=== PATIENT | female | born 1965 | race Caucasian/White ===

== ENCOUNTER 2020-05-29 16:14 | Emergency (ER) | payer OTHER ==
[~2020-05-29] VITALS: Ht 167.6 cm; Wt 52.2 kg
[~2020-05-29 16:14] MED LIST: CELEXA20 MG PO; MEDROL DOSEPAK4 MG PO; MOTRIN600 MG PO; TESSALON PERLE100 MG PO; VICODIN 5/500 505 MG PO; ZYRTEC10 MG PO
[2020-05-29 17:23] LABS: BASO # 0.1 10*3/uL (0.0-0.1); BASO % 0.7 % (0.0-1.0); EOS # 0.6 10*3/uL (0.0-0.4); EOS % 5.1 % (1.0-4.0); HEMATOCRIT 43.6 % (37.0-47.0); LYMPH # 2.3 10*3/uL (1.3-4.4); MEAN CELL VOLUME 95.4 fl (81.0-99.0); MEAN CORPUSCULAR HGB 30.4 pg (27.0-31.0); MEAN CORPUSCULAR HGB CONC 31.9 g/dl (33.0-37.0); MEAN PLATELET VOLUME 10.1 fl (9.6-12.3); MONO # 0.7 10*3/uL (0.1-1.0); MONO % 5.3 % (3.0-9.0); NEUT # 8.8 10*3/uL (2.3-7.9); NEUT % 70.5 % (47.0-73.0); PLATELET COUNT AUTOMATED 296 10*3/uL (130-400); RED BLOOD COUNT 4.57 10*6/uL (4.10-5.10); RED CELL DISTRI WIDTH 12.4 % (0-14.5); WHITE BLOOD COUNT 12.5 10*3/uL (4.8-10.8)
[2020-05-29 17:40] LABS: ALBUMIN 3.7 gm/dl (3.1-4.5); ALKALINE PHOSPHATASE 74 U/L (45-117); BUN 20 mg/dl (7-24); CHLORIDE 108 mmol/L (98-107); CREATININE 1.43 mg/dL (0.55-1.02); LIPASE 162 U/L (73-393); POTASSIUM 3.4 mmol/L (3.5-5.1); SGOT/AST 21 IU/L (3-35); SGPT/ALT 25 U/L (12-78); SODIUM 137 mmol/L (136-145); TOTAL PROTEIN 8.3 gm/dL (6.4-8.2)
[2020-05-29 17:41] LABS: TROPONIN I < 0.015 ng/ml (<0.045)
[2020-05-29 18:25] LABS: ACT PARTIAL THROMBO TIME 28.2 SECONDS (20.0-32.1)
== END 2020-05-29 20:01 | disposition home or self-care (01) ==
LOC: ED 16:14
PROVIDERS: Emergency Medicine
DX: E86.0 Dehydration (principal); Z79.899 Other long term (current) drug therapy

== ENCOUNTER 2021-05-25 13:33 | Emergency (ER) | payer OTHER ==
[~2021-05-25] VITALS: Ht 160 cm; Wt 52.2 kg
[2021-05-25] MEDS ORDERED: METHOCARBAMOL500 M1 PO (16:48)
[2021-05-25] MEDS ORDERED: PREDNISONE20 M1 PO (16:48)
== END 2021-05-25 16:55 | disposition home or self-care (01) ==
LOC: ED 13:33
DX: S33.5XXA Sprain of ligaments of lumbar spine, initial encounter (principal); S13.9XXA Sprain of joints and ligaments of unspecified parts of neck, initial encounter; Z79.899 Other long term (current) drug therapy; Z98.51 Tubal ligation status; X50.0XXA Overexertion from strenuous movement or load, initial encounter; Y93.89 Activity, other specified; Y92.89 Other specified places as the place of occurrence of the external cause; Y99.8 Other external cause status

== ENCOUNTER → 2021-10-24 | Outpatient (CLI) | payer OTHER ==
[~2021-10-24] MED LIST changes: +METHOCARBAMOL500 M1 PO; +PREDNISONE20 M1 PO
== END | disposition home or self-care (01) ==
LOC: COVID19 15:17
PROVIDERS: ATTEND Internal Medicine
DX: Z20.822 Contact with and (suspected) exposure to COVID-19 (principal)

== ENCOUNTER 2021-11-09 20:07 | Emergency (ER) | payer OTHER ==
[~2021-11-09] VITALS: Wt 56.7 kg
[2021-11-09] MEDS ORDERED: METOPROLOL SUCC25 M2 PO (20:12)
[2021-11-09] MEDS ORDERED: MEDROXYPROGEST2.5 MG PO (20:13)
[2021-11-09] MEDS ORDERED: LEVOTHYROXINE50 MCG PO (20:13)
[2021-11-09] MEDS ORDERED: Synthroid,Levo25 MCG PO (20:13)
[2021-11-09 20:38] LABS: BASO # 0.1 10*3/uL (0.0-0.1); BASO % 0.5 % (0.0-1.0); EOS # 0.4 10*3/uL (0.0-0.4); EOS % 4.3 % (1.0-4.0); HEMATOCRIT 41.2 % (37.0-47.0); LYMPH # 2.6 10*3/uL (1.3-4.4); LYMPH % 26.5 % (27.0-41.0); MEAN CELL VOLUME 90.7 fl (81.0-99.0); MEAN CORPUSCULAR HGB 31.5 pg (27.0-31.0); MEAN CORPUSCULAR HGB CONC 34.7 g/dl (33.0-37.0); MEAN PLATELET VOLUME 8.8 fl (9.6-12.3); MONO # 0.6 10*3/uL (0.1-1.0); NEUT # 6.1 10*3/uL (2.3-7.9); NEUT % 62.4 % (47.0-73.0); PLATELET COUNT AUTOMATED 335 10*3/uL (130-400); RED BLOOD COUNT 4.54 10*6/uL (4.10-5.10); WHITE BLOOD COUNT 9.8 10*3/uL (4.8-10.8)
[2021-11-09 20:52] LABS: ALBUMIN 3.4 gm/dl (3.1-4.5); ALKALINE PHOSPHATASE 95 U/L (45-117); BUN 8 mg/dl (7-24); CHLORIDE 107 mmol/L (98-107); CREATININE 0.77 mg/dL (0.55-1.02); POTASSIUM 3.7 mmol/L (3.5-5.1); SGOT/AST 27 IU/L (3-35); SGPT/ALT 20 U/L (12-78); SODIUM 140 mmol/L (136-145); TOTAL PROTEIN 7.6 gm/dL (6.4-8.2)
== END 2021-11-09 21:29 | disposition home or self-care (01) ==
LOC: ED 20:07
PROVIDERS: Internal Medicine
DX: F41.0 Panic disorder [episodic paroxysmal anxiety] (principal); R05.9 Cough, unspecified; Z79.899 Other long term (current) drug therapy; Z98.51 Tubal ligation status

== ENCOUNTER 2022-07-16 16:05 | Emergency (ER) | payer SELFPAY ==
[~2022-07-16 16:05] MED LIST changes: +LEVOTHYROXINE50 MCG PO; +MEDROXYPROGEST2.5 MG PO; +METOPROLOL SUCC25 M2 PO; +Synthroid,Levo25 MCG PO
[2022-07-16] MEDS ORDERED: PREDNISONE50 MG PO (16:42)
[2022-07-16] MEDS ORDERED: FLONASE ALLERG9.9 ML NAS (16:42)
[2022-07-16] MEDS ORDERED: ZITHROMAX250 MG PO (16:42)
== END 2022-07-16 16:54 | disposition home or self-care (01) ==
LOC: ED 16:05
DX: J20.9 Acute bronchitis, unspecified (principal); J32.8 Other chronic sinusitis; Z79.899 Other long term (current) drug therapy; Z98.51 Tubal ligation status

== ENCOUNTER 2023-01-13 09:22 | Emergency (ER) | payer SELFPAY ==
[~2023-01-13] VITALS: Ht 157.4 cm; Wt 54.4 kg
[~2023-01-13 09:22] MED LIST changes: +FLONASE ALLERG9.9 ML NAS; +PREDNISONE50 MG PO; +ZITHROMAX250 MG PO
[2023-01-13] MEDS ORDERED: Ondansetron4 MG PO (09:48)
== END 2023-01-13 11:22 | disposition home or self-care (01) ==
LOC: ED 09:22
DX: R11.2 Nausea with vomiting, unspecified (principal); Z20.822 Contact with and (suspected) exposure to COVID-19; R05.9 Cough, unspecified; R51.9 Headache, unspecified; Z79.899 Other long term (current) drug therapy; Z98.51 Tubal ligation status

== ENCOUNTER 2024-10-07 08:24 | Emergency (ER) | payer BC ==
[~2024-10-07] VITALS: Ht 157.4 cm; Wt 56.7 kg
[~2024-10-07 08:24] MED LIST changes: +Ondansetron4 MG PO
[2024-10-07] MEDS ORDERED: AVPAK AZITHROM250 M1 PO (08:40)
== END 2024-10-07 08:45 | disposition home or self-care (01) ==
LOC: ED 08:24
DX: J32.9 Chronic sinusitis, unspecified (principal); H92.03 Otalgia, bilateral; F32.A Depression, unspecified; F41.9 Anxiety disorder, unspecified; F17.210 Nicotine dependence, cigarettes, uncomplicated

== ENCOUNTER 2025-07-18 10:57 | Emergency (ER) | payer BC ==
[~2025-07-18] VITALS: Ht 160 cm; Wt 49.9 kg
[~2025-07-18 10:57] MED LIST changes: +AVPAK AZITHROM250 M1 PO
[2025-07-18] MEDS ORDERED: AMOX-CLAV 875-1 EACH PO (12:56)
== END 2025-07-18 13:05 | disposition home or self-care (01) ==
LOC: ED 10:57
DX: B34.9 Viral infection, unspecified (principal); J02.9 Acute pharyngitis, unspecified; H66.93 Otitis media, unspecified, bilateral; F41.9 Anxiety disorder, unspecified; F32.A Depression, unspecified; F17.210 Nicotine dependence, cigarettes, uncomplicated

== ENCOUNTER 2025-07-29 14:10 | Emergency (ER) | payer BC ==
[~2025-07-29] VITALS: Ht 157.4 cm; Wt 52.2 kg
[~2025-07-29 14:10] MED LIST changes: +AMOX-CLAV 875-1 EACH PO
[2025-07-29] MEDS ORDERED: AZITHROMYCIN 250 MG TAB PO ONE (15:40)
[2025-07-29] MEDS ORDERED: ZITHROMAX250 MG PO (15:40)
[2025-07-29] MEDS ORDERED: predniSONE 20 MG TAB PO ONE (15:40)
[2025-07-29] MEDS ORDERED: PREDNISONE50 MG PO (15:40)
== END 2025-07-29 15:44 | disposition home or self-care (01) ==
LOC: ED 14:10
DX: J01.90 Acute sinusitis, unspecified (principal); H92.03 Otalgia, bilateral; F17.200 Nicotine dependence, unspecified, uncomplicated; Z79.899 Other long term (current) drug therapy; Z20.822 Contact with and (suspected) exposure to COVID-19